=== PATIENT | female | born 1960 | race Hispanic/Latino ===

== ENCOUNTER 2020-12-15 17:01 | Emergency (ER) | payer BC ==
[~2020-12-15] VITALS: Ht 152.4 cm; Wt 86.0 kg
[~2020-12-15 17:01] MED LIST: PREDNISONE10 MG PO; TESSALON PER100 MG PO; ULTRAM50 M1 PO; VALTREX1 GM PO; VENTOLIN HF1 IN; ZPAK PO
[2020-12-15] MEDS ORDERED: TRAMADOL HYDROC50 M1 PO (17:47)
[2020-12-15 18:00] VITALS: BP 150/76
== END 2020-12-15 18:00 | disposition home or self-care (01) | DRG 556 ==
LOC: ED 17:01
DX: M25.511 Pain in right shoulder (principal); M25.521 Pain in right elbow; M79.641 Pain in right hand; E66.9 Obesity, unspecified; X50.0XXA Overexertion from strenuous movement or load, initial encounter; Y93.89 Activity, other specified; Y92.89 Other specified places as the place of occurrence of the external cause; Y99.0 Civilian activity done for income or pay